=== PATIENT | female | born 1985 | race Caucasian/White ===

== ENCOUNTER 2016-06-09 19:08 | Emergency (ER) | payer BC | END 2016-06-09 20:21 | disposition home or self-care (01) | LOC: ER 19:08 | DX: S46.911A Strain of unspecified muscle, fascia and tendon at shoulder and upper arm level, right arm, initial encounter (principal); F17.200 Nicotine dependence, unspecified, uncomplicated; Z88.8 Allergy status to other drugs, medicaments and biological substances; Z88.1 Allergy status to other antibiotic agents; Y93.72 Activity, wrestling; Y99.0 Civilian activity done for income or pay | CPT/HCPCS: 73030-RT; 96374; 99283; J1170 ==